=== PATIENT | male | born 1970 | race Caucasian/White ===

== ENCOUNTER → 2020-09-04 | Outpatient (CLI) | payer MEDICARE ==
[2020-09-04 10:37] LABS: RED BLOOD COUNT 4.28 M/UL (4.20-5.50); WHITE BLOOD COUNT 5.5 K/UL (4.5-11.0)
== END ==
LOC: LAB 09:12
PROVIDERS: Internal Medicine
DX: E55.9 Vitamin D deficiency, unspecified (principal)
CPT/HCPCS: 36415; 80069; 81001; 82043; 82570; 83970; 84156; 84550; 85027

== ENCOUNTER → 2020-10-29 | Outpatient (CLI) | payer MEDICARE | LOC: LAB 08:33 | PROVIDERS: Internal Medicine Medical Oncology | DX: C64.9 Malignant neoplasm of unspecified kidney, except renal pelvis (principal) | CPT/HCPCS: 36415; 80053 ==

== ENCOUNTER 2021-02-09 05:24 | Inpatient (IN) | payer MEDICARE ==
[~2021-02-09] VITALS: Ht 175.3 cm; Wt 98.0 kg
[2021-02-09 06:20] LABS: HEMOGLOBIN 15.4 gm/dl (14.0-17.5); RED BLOOD COUNT 4.31 M/UL (4.20-5.50)
[2021-02-09] MEDS ORDERED: CORTEF 10MG TAB10 MG PO ×2 (09:37→09:38)
[2021-02-09] MEDS ORDERED: ROCALTROL CA0.25 MCG PO (09:37)
[2021-02-09] MEDS ORDERED: FLORINEF 0.1 M0.1 MG PO (09:38)
[2021-02-09] MEDS ORDERED: LOPRESSOR50 MG PO (09:38)
[2021-02-09] MEDS ORDERED: NIFEDIPINE ER90 MG PO (09:39)
[2021-02-09] MEDS ORDERED: EUTHYROX200 MCG PO (09:39)
[2021-02-09] MEDS ORDERED: LOMOTIL 2.5-0.1 EACH PO (09:39)
[2021-02-09] MEDS ORDERED: [UNRECOGNIZED DRUG - OTHER] PO (09:41)
[2021-02-09] MEDS ORDERED: OMEPRAZOLE20 MG PO (10:30)
[2021-02-09] MEDS ORDERED: VITAMIN D350 MC3 PO (10:30)
[2021-02-10 05:04] LABS: HEMOGLOBIN 15.6 gm/dl (14.0-17.5); RED BLOOD COUNT 4.37 M/UL (4.20-5.50); WHITE BLOOD COUNT 10.3 K/UL (4.5-11.0)
[2021-02-11 02:48] LABS: RED BLOOD COUNT 3.49 M/UL (4.20-5.50); WHITE BLOOD COUNT 6.7 K/UL (4.5-11.0)
[2021-02-11 02:49] LABS: HEMOGLOBIN 12.2 gm/dl (14.0-17.5)
[2021-02-12 03:43] LABS: HEMOGLOBIN 11.2 gm/dl (14.0-17.5); RED BLOOD COUNT 3.18 M/UL (4.20-5.50); WHITE BLOOD COUNT 5.2 K/UL (4.5-11.0)
[2021-02-12] MEDS ORDERED: ZOFRAN4 MG PO (09:06)
== END 2021-02-12 12:41 | disposition home or self-care (01) | DRG 389 ==
LOC: ER1 05:24 → CDU 08:36 → MED SURG 4 08:36
PROVIDERS: Family Medicine; Internal Medicine; Physician Assistant; ADMIT Internal Medicine
DX: K56.51 Intestinal adhesions [bands], with partial obstruction (principal); N17.9 Acute kidney failure, unspecified; C78.00 Secondary malignant neoplasm of unspecified lung; K52.1 Toxic gastroenteritis and colitis; E89.6 Postprocedural adrenocortical (-medullary) hypofunction; I12.9 Hypertensive chronic kidney disease with stage 1 through stage 4 chronic kidney disease, or unspecified chronic kidney disease; N18.30 Chronic kidney disease, stage 3 unspecified; Z20.822 Contact with and (suspected) exposure to COVID-19; E03.9 Hypothyroidism, unspecified; T45.1X5A Adverse effect of antineoplastic and immunosuppressive drugs, initial encounter; K80.20 Calculus of gallbladder without cholecystitis without obstruction; Z82.49 Family history of ischemic heart disease and other diseases of the circulatory system; Z85.528 Personal history of other malignant neoplasm of kidney; Z90.5 Acquired absence of kidney; Z84.1 Family history of disorders of kidney and ureter; Z82.5 Family history of asthma and other chronic lower respiratory diseases; Z85.89 Personal history of malignant neoplasm of other organs and systems
CPT/HCPCS: 36415; 80053; 81001; 82565; 83690; 85025; 85027; 96374; 96375; 99285; C9113; J1644; J1720; J2270; J2405; J7030; P9047; U0002

== ENCOUNTER 2021-02-19 05:59 | Emergency (ER) | payer MEDICARE ==
[~2021-02-19 05:59] MED LIST: CORTEF 10MG TAB10 MG PO; EUTHYROX200 MCG PO; FLORINEF 0.1 M0.1 MG PO; LOMOTIL 2.5-0.1 EACH PO; LOPRESSOR50 MG PO; NIFEDIPINE ER90 MG PO; OMEPRAZOLE20 MG PO; ROCALTROL CA0.25 MCG PO; VITAMIN D350 MC3 PO; ZOFRAN4 MG PO; [UNRECOGNIZED DRUG - OTHER] PO
[2021-02-19 09:33] LABS: HEMOGLOBIN 15.9 gm/dl (14.0-17.5); RED BLOOD COUNT 4.49 M/UL (4.20-5.50); WHITE BLOOD COUNT 8.5 K/UL (4.5-11.0)
[2021-02-19] MEDS ORDERED: BENTYL 10MG CAP10 MG PO (14:59)
== END 2021-02-19 15:30 | disposition home or self-care (01) ==
LOC: ER1 05:59
PROVIDERS: Physician Assistant
DX: K52.9 Noninfective gastroenteritis and colitis, unspecified (principal); Z20.822 Contact with and (suspected) exposure to COVID-19; I10 Essential (primary) hypertension; Z85.53 Personal history of malignant neoplasm of renal pelvis
CPT/HCPCS: 80053; 81001; 82550; 82553; 83690; 84484; 85025; 93005; 99284; J7030; U0002

== ENCOUNTER 2021-02-28 06:13 | Inpatient (IN) | payer MEDICARE ==
[~2021-02-28] VITALS: Ht 175.3 cm; Wt 98.0 kg
[~2021-02-28 06:13] MED LIST changes: +BENTYL 10MG CAP10 MG PO
[2021-02-28 06:59] LABS: HEMOGLOBIN 15.4 gm/dl (14.0-17.5); RED BLOOD COUNT 4.61 M/UL (4.20-5.50); WHITE BLOOD COUNT 8.7 K/UL (4.5-11.0)
[2021-02-28 22:23] LABS: HEMOGLOBIN 12.7 gm/dl (14.0-17.5); RED BLOOD COUNT 3.7 M/UL (4.20-5.50); WHITE BLOOD COUNT 15.2 K/UL (4.5-11.0)
[2021-03-01 03:03] LABS: ACINETOBACTER BAUMANNII Not Detected (Negative); CANDIDA ALBICANS Not Detected (Negative); CANDIDA KRUSEI Not Detected (Negative); CANDIDA TROPICALIS Not Detected (Negative); ENTEROCOCCUS Not Detected (Negative); ESCHERICHIA COLI Not Detected (Negative); HAEMOPHILUS INFLUENZAE Not Detected (Negative); KLEBSIELLA OXYTOCA Not Detected (Negative); KLEBSIELLA PNEUMONIAE DETECTED (Negative); KPC-CARBAPENEM-RESISTANCE GENE Not Detected (Negative); PROTEUS Not Detected (Negative); PSEUDOMONAS AERUGINOSA Not Detected (Negative); SERRATIA MARCESANS Not Detected (Negative); STAPHYLOCOCCUS Not Detected (Negative); STAPHYLOCOCCUS AUREUS Not Detected (Negative); STREP AGALACTIAE (GROUP B) Not Detected (Negative); STREP PYOGENES (GROUP A) Not Detected (Negative); STREPTOCOCCUS Not Detected (Negative); mecA (METHICILLIN RESIST GENE Not Detected (Negative); vanA/B (VANCOMYCIN RESIST GENE Not Detected (Negative)
[2021-03-01 03:15] LABS: HEMOGLOBIN 13.1 gm/dl (14.0-17.5); RED BLOOD COUNT 3.92 M/UL (4.20-5.50)
[2021-03-01 03:18] LABS: WHITE BLOOD COUNT 21.2 K/UL (4.5-11.0)
--- NOTE | 2021-03-01 19:16 | NUR ---
LAB CALLED WITH A K OF 6.9 NOTIFIED HOSPITALIST.
[2021-03-02 07:38] LABS: HEMOGLOBIN 10.4 gm/dl (14.0-17.5); RED BLOOD COUNT 3.09 M/UL (4.20-5.50); WHITE BLOOD COUNT 11.5 K/UL (4.5-11.0)
[2021-03-03 03:47] LABS: HEMOGLOBIN 10.5 gm/dl (14.0-17.5); RED BLOOD COUNT 3.09 M/UL (4.20-5.50); WHITE BLOOD COUNT 9.3 K/UL (4.5-11.0)
[2021-03-04 06:30] LABS: HEMOGLOBIN 11.5 gm/dl (14.0-17.5); WHITE BLOOD COUNT 9.7 K/UL (4.5-11.0)
[2021-03-04 06:41] LABS: RED BLOOD COUNT 3.42 M/UL (4.20-5.50)
[2021-03-04 09:14] LABS: HBSAG SCREEN Negative (Negative); HEP A AB, IGM Negative (Negative); HEP B CORE AB, IGM Negative (Negative); HEP C VIRUS AB <0.1 (0.0-0.9)
--- NOTE | 2021-03-04 15:05 | NUR ---
REPORT CALLED TO [facility]-----ALYSE KEENE
--- NOTE | 2021-03-04 21:49 | NUR ---
CALLED FOR UPDATE ON TRANSPORTATION TO [facility] [place] PER PATIENT REQUEST. DISPATCH CONFIRMED THAT IT WOULD BE AN HOUR OR 2 MORE UNTIL ARRIVAL TO TRANSPORT PATIENT. PATIENT WAS TOLD ABOUT UPDATE AT THIS TIME. PATIENT IS VERY ANXIOUS ABOUT IT BEING LATE AT NIGHT FOR TRANFER. CALLED DR. HERNANDEZ FOR ORDER TO GIVE SOMETHING FOR ANXIETY PRIOR TO DEPARTURE AND MD WAS CONCERNED ABOUT GIVING SOMETHING SEDATING ON EMS RUN. MD WANTS PATIENT TO BE ALERT FOR TRANSPORT AND AWAKE.
--- NOTE | 2021-03-05 01:21 | NUR ---
PATIENT DEPARTED WITH EMS AT THIS TIME. IV SITES BOTH INTACT WITH NO PROBLEMS NOTED. [facility] CATH INTACT AND NO PROBLEMS NOTED.
== END 2021-03-05 01:24 | disposition short-term general hospital (02) | DRG 871 ==
LOC: ER1 06:13 → CDU 10:20 → PROG CARE 10:20
PROVIDERS: Internal Medicine; Internal Medicine Nephrology; Physician Assistant; ADMIT Internal Medicine
PROC: 3E033XZ Introduction of Vasopressor into Peripheral Vein, Percutaneous Approach (ICD-10-PCS; principal; 2021-02-28)
DX: A41.89 Other specified sepsis (principal); R65.21 Severe sepsis with septic shock; K85.10 Biliary acute pancreatitis without necrosis or infection; N17.0 Acute kidney failure with tubular necrosis; K83.09 Other cholangitis; E87.2 Acidosis; C64.2 Malignant neoplasm of left kidney, except renal pelvis; C64.1 Malignant neoplasm of right kidney, except renal pelvis; E89.6 Postprocedural adrenocortical (-medullary) hypofunction; C78.02 Secondary malignant neoplasm of left lung; C78.01 Secondary malignant neoplasm of right lung; C79.72 Secondary malignant neoplasm of left adrenal gland; C79.71 Secondary malignant neoplasm of right adrenal gland; Z20.822 Contact with and (suspected) exposure to COVID-19; I12.9 Hypertensive chronic kidney disease with stage 1 through stage 4 chronic kidney disease, or unspecified chronic kidney disease; E87.5 Hyperkalemia; N18.30 Chronic kidney disease, stage 3 unspecified; E03.9 Hypothyroidism, unspecified; B96.89 Other specified bacterial agents as the cause of diseases classified elsewhere; B96.1 Klebsiella pneumoniae [K. pneumoniae] as the cause of diseases classified elsewhere
CPT/HCPCS: 36415; 36600; 71045; 71250; 76705; 80048; 80053; 80074; 81001; 82150; 82803; 83605; 83690; 83735; 83880; 84100; 85025; 85027; 85652; 86140; 87040; 87077; 87150; 87186; 93005; 94760; 96365; 96375; 99285; C9113; J0610; J1720; J2185; J2270; J2405; J2543; J3370; J3475; J7030; J7070; U0002

== ENCOUNTER → 2021-03-11 | Outpatient (CLI) | payer MEDICARE | LOC: LAB 08:21 | DX: K85.90 Acute pancreatitis without necrosis or infection, unspecified (principal) | CPT/HCPCS: 36415; 80069 ==

== ENCOUNTER → 2021-04-23 | Outpatient (CLI) | payer MEDICARE ==
[2021-04-23 09:18] LABS: HEMOGLOBIN 12.3 gm/dl (14.0-17.5); RED BLOOD COUNT 3.59 M/UL (4.20-5.50)
== END ==
LOC: LAB 08:18
PROVIDERS: Internal Medicine
DX: N25.0 Renal osteodystrophy (principal); N17.9 Acute kidney failure, unspecified
CPT/HCPCS: 36415; 80069; 83970; 85027

== ENCOUNTER 2021-05-15 16:09 | Emergency (ER) | payer MEDICARE ==
[2021-05-15 18:21] LABS: HEMOGLOBIN 12.8 gm/dl (14.0-17.5); RED BLOOD COUNT 3.75 M/UL (4.20-5.50); WHITE BLOOD COUNT 5.7 K/UL (4.5-11.0)
[2021-05-15 18:54] LABS: BUN/CREATININE RATIO 7 (0-10)
== END 2021-05-15 21:15 | disposition short-term general hospital (02) ==
LOC: ER1 16:09
PROVIDERS: Nurse Practitioner
DX: K85.90 Acute pancreatitis without necrosis or infection, unspecified (principal); K81.0 Acute cholecystitis; Z85.528 Personal history of other malignant neoplasm of kidney
CPT/HCPCS: 80053; 81001; 82550; 82553; 83690; 83874; 84484; 85025; 85652; 86140; 96374; 96375; 99284; J1335; J2405

== ENCOUNTER → 2021-09-02 | Outpatient (CLI) | payer MEDICARE ==
[2021-09-02 12:22] LABS: HEMOGLOBIN 10.8 gm/dl (14.0-17.5); RED BLOOD COUNT 3.27 M/UL (4.20-5.50); WHITE BLOOD COUNT 3.7 K/UL (4.5-11.0)
== END ==
LOC: LAB 11:06
PROVIDERS: Internal Medicine Medical Oncology
DX: C64.9 Malignant neoplasm of unspecified kidney, except renal pelvis (principal)
CPT/HCPCS: 36415; 80053; 85025

== ENCOUNTER → 2021-10-30 | Outpatient (CLI) | payer MEDICARE ==
[2021-10-30 11:47] LABS: HEMOGLOBIN 12.2 gm/dl (14.0-17.5); RED BLOOD COUNT 3.57 M/UL (4.20-5.50); WHITE BLOOD COUNT 5.1 K/UL (4.5-11.0)
== END ==
LOC: LAB 11:15
PROVIDERS: Internal Medicine
DX: N18.30 Chronic kidney disease, stage 3 unspecified (principal)
CPT/HCPCS: 36415; 80069; 85027

== ENCOUNTER → 2021-11-09 | Outpatient (CLI) | payer MEDICARE | LOC: LAB 12:48 | DX: Z20.822 Contact with and (suspected) exposure to COVID-19 (principal) | CPT/HCPCS: U0003 ==

== ENCOUNTER → 2021-11-17 | Outpatient (CLI) | payer MEDICARE ==
[2021-11-17 10:34] LABS: HEMOGLOBIN 13.4 gm/dl (14.0-17.5); RED BLOOD COUNT 3.88 M/UL (4.20-5.50); WHITE BLOOD COUNT 5.4 K/UL (4.5-11.0)
== END ==
LOC: LAB 09:45
PROVIDERS: Internal Medicine Medical Oncology
DX: E27.40 Unspecified adrenocortical insufficiency (principal); R91.8 Other nonspecific abnormal finding of lung field; C64.9 Malignant neoplasm of unspecified kidney, except renal pelvis
CPT/HCPCS: 36415; 80053; 83735; 84100; 85025

== ENCOUNTER → 2021-11-18 | Outpatient (CLI) | payer MEDICARE | LOC: OPSV 11:00 | DX: C64.9 Malignant neoplasm of unspecified kidney, except renal pelvis (principal); C79.9 Secondary malignant neoplasm of unspecified site | CPT/HCPCS: 96365; 96366; J1642; J3475 ==

== ENCOUNTER → 2022-01-07 | Outpatient (CLI) | payer MEDICARE | LOC: LAB 14:14 | DX: Z20.822 Contact with and (suspected) exposure to COVID-19 (principal) | CPT/HCPCS: U0002 ==